=== PATIENT | female | born 1975 ===

== ENCOUNTER 2018-11-09 07:59 | Emergency (ER) | payer OTHER, SELFPAY ==
[2018-11-09] MEDS ORDERED: Sodium Chloride 0.9% 1,000 ML IV ONE (08:25)
[2018-11-09] MEDS ORDERED: Iohexol 240 (50 ml) PO STA (08:25)
--- NOTE | 2018-11-09 08:25 | C.PDOC ---
History Of Present Illness 43 year old female presents to ED with complaint of generalized abdominal pain for the past 5 days. Patient has a past surgical history of appendectomy. Patient denies history of hypertension. Patient also complains of associated maria m sea and vomiting. Patient denies fever, chills, and headache. GEN ABD PAIN X 5 DAYS. +NV. SUBJ FEVER. PSH APPY. DENIES HO HTN EXAM MOD DIST NONTOXIC HEENT MMM ABD +LUQ/LLQ/EPIG TEND SOFT ND GOOD TURGOR REMAINDER NEG Time Seen by Provider: 11/09/18 08:17 Chief Complaint (Nursing): Abdominal Pain History Per: Patient History/Exam Limitations: no limitations Onset/Duration Of Symptoms: Days (5) Current Symptoms Are (Timing): Still Present Location Of Pain/Discomfort: Diffuse Quality Of Discomfort: "Pain" Associated Symptoms: Nausea, Vomiting. denies: Fever, Chills, Diarrhea Past Medical History Reviewed: Historical Data, Nursing Documentation, Vital Signs Vital Signs: Last Vital Signs Temp 98.1 F 11/09/18 08:04 Pulse 81 11/09/18 08:04 Resp 20 11/09/18 08:04 BP 192/122 H 11/09/18 08:04 Pulse Ox 98 11/09/18 08:04 - Medical History PMH: Denies: HTN, Chronic Kidney Disease Surgical History: Appendectomy - [facility] Procedures BYPASS ILEUM TO CECUM, OPEN APPROACH (07/06/15) INSPECTION OF LOWER INTESTINAL TRACT, PERC ENDO APPROACH (07/06/15) RESECTION OF APPENDIX, OPEN APPROACH (07/06/15) Family History: States: Unknown Family Hx - Social History Hx Tobacco Use: Yes Hx Alcohol Use: Yes Hx Substance Use: Yes (cocaine, alcohol, tobacco) - Immunization History Hx Tetanus Toxoid Vaccination: No Hx Influenza Vaccination: No Hx Pneumococcal Vaccination: No Review Of Systems Constitutional: Negative for: Fever, Chills, Weakness Cardiovascular: Negative for: Chest Pain, Palpitations Respiratory: Negative for: Cough, Shortness of Breath Gastrointestinal: Positive for: Nausea, Vomiting, Abdominal Pain. Negative for: Diarrhea Genitourinary: Negative for: Dysuria, Hematuria Neurological: Negative for: Weakness, Numbness, Headache, Dizziness Physical Exam - Physical Exam Appears: Non-toxic, Other (moderately distressed) Skin: Normal Color, Warm, Dry, Other (good turgor) Head: Atraumatic, Normacephalic Oral Mucosa: Moist Neck: Normal ROM, Supple Chest: Symmetrical, No Deformity Cardiovascular: Rhythm Regular, No Murmur Respiratory: No Accessory Muscle Use, No Rales, No Rhonchi, No Wheezing, Other (NARD) Gastrointestinal/Abdominal: Soft, Tenderness (left upper quadrant, left lower quadrant, epigastric area), No Distention Extremity: Capillary Refill (<2 seconds) Extremity: Bilateral: Atraumatic, Normal Color And Temperature Pulses: Left Radial: Normal, Right Radial: Normal Neurological/Psych: Oriented x3, Normal Speech, Normal Cognition ED Course And Treatment - Laboratory Results Result Diagrams: 11/09/18 08:34 11/09/18 08:34 ECG: Interpreted By Me ECG Rhythm: Sinus Rhythm ECG Interpretation: Normal Rate From EC O2 Sat by Pulse Oximetry: 98 (RA) Pulse Ox Interpretation: Normal - CT Scan/US CT Abdomen/Pelvis Other Rad Studies (CT/US): Interpreted By Me, Read By Radiologist CT/US Interpretation: Accession No. : [id number]. Patient Name / ID : JIM Man / [id number]. Exam Date : 11/09/2018 10:44:31 ( Approved ). Study Comment : Sex / Age : F / 43Y. Creator : Baylee Aaron. Dictator : Nuzhat Morris MD. Road Manager : Crab Fisher : Bijal Morris MD. Approver2 : Report Date : 11/09/2018 10:57:28. My Comment : . This report is currently processing and HAS NOT BEEN OFFICIALLY SIGNED BY THE PHYSICIAN - ESTIMATED TIME OF APPROVAL IS 11/09/2018 11:31. PROCEDURE: CT Abdomen and Pelvis with oral and IV contrast. HISTORY: abd pain PSH APPY RO OBSTRUCT/COLITIS. COMPARISON: CT abdomen and pelvis with IV contrast performed 07/06/15. TECHNIQUE: Contigu ous axial images of the abdomen and pelvis. Oral and IV contrast was administered. Coronal and Sagittal reformats generated and reviewed. Contrast dose: 100 Visipaque 320 IV. Radiation dose: Total exam DLP = 328.14 mGy-cm. This CT exam was performed using one or more of the following dose reduction techniques: Automated exposure control, adjustment of the mA and/or kV according to patient size, and/or use of iterative reconstruction technique. FINDINGS: LOWER THORAX: No visible consolidation, pleural effusion, or pneumothorax. LIVER: Hepatomegaly. Hypoattenuation of the liver compatible with hepatic steatosis. GALLBLADDER AND BILE DUCTS: Unremarkable. PANCREAS: Unremarkable. SPLEEN: Unremarkable. ADRENALS: Unremarkable. KIDNEYS AND URETERS: The kidneys enhance symmetrically. No hydronephrosis or obstructing renal calculus. BLADDER: The urinary bladder appears unremarkable. REPRODUCTIVE: Uterus is absent consistent with hysterectomy. APPENDIX: Postsurgical changes consistent with appendectomy. BOWEL: The stomach is nondistended. The bowel loops appear within normal limits of caliber without evidence of intestinal obstruction. PERITONEUM: No significant free fluid. No definite free air. LYMPH NODES: No bulky lymphadenopathy identified. VASCULATURE: No aortic aneurysm. No atherosclerotic calcification or mural plaque present. BONES: Degenerative changes of the spine. OTHER FINDINGS: None. IMPRESSION: Hepatomegaly. Hypoattenuation of the liver compatible with hepatic steatosis. Appendectomy. Progress Note: CT Abdomen/Pelvis and EKG ordered for patient. Labs ordered with UA for patient. Patient given Morphine IVP, IV fluids, and Zofran IVP. Progress - Data Reviewed Data Reviewed: Lab, Diagnostic imaging, EKG, Old records Disposition Counseled Patient/Family Regarding: Diagnosis, Need For Followup - Disposition Referrals: [facility] [Outside] [facility] [Outside] Disposition: HOME/ ROUTINE Disposition Time: 12:07 Condition: IMPROVED Prescriptions: Acetaminophen with Codeine [Tylenol with Codeine No. 3 300 mg-30 mg] 1 tab PO Q6 PRN #12 tab PRN Reason: Pain, Moderate (4-7) Hydrochlorothiazide [Microzide] 12.5 mg PO DAILY #14 cap Instructions: Acute Abdomen (Belly Pain), Adult (DC), High Blood Pressure (DC) Forms: Bl[employer] for iPhone and Android Connect (Italian), Work Excuse Print Language: URUGUAYAN - Clinical Impression Clinical Impression: Abdominal pain, Hypertension - Scribe Statement The provider has reviewed the documentation as recorded by the Scribe (Lauren Ramon) All medical record entries made by the Scribe were at my direction and personally dictated by me. I have reviewed the chart and agree that the record accurately reflects my personal performance of the history, physical exam, medical decision making, and the department course for this patient. I have also personally directed, reviewed, and agree with the discharge instructions and disposition.
[2018-11-09] MEDS ORDERED: Sodium Chloride 0.9% 1,000 ML ONE (08:38)
[2018-11-09] MEDS ORDERED: Iohexol 240 (50 ml) ONE (08:38)
[2018-11-09] MEDS ORDERED: Morphine 4 MG/ML VIAL ONE ×2 (08:38→11:41)
[2018-11-09 08:46] LABS: BASO # 0.1 K/uL (0.0-0.2); BASO % 0.8 % (0.0-2.0); EOS # 0.1 K/uL (0.0-0.7); EOS % 1.3 % (0.0-4.0); HEMOGLOBIN 13.1 g/dL (11.0-16.0); LYMPH # 2.5 K/uL (1.0-4.3); LYMPH % 37.3 % (20.0-40.0); MEAN CORPUSCULAR HEMOGLOBIN 33.2 pg (27.0-31.0); MEAN CORPUSCULAR HGB CONC 33.8 g/dL (33.0-37.0); MEAN PLATELET VOLUME 8.5 fL (7.2-11.7); MONO # 0.6 K/uL (0.0-0.8); NEUT # 3.4 K/uL (1.8-7.0); NEUT % 51.6 % (50.0-75.0); NRBC % 0.1 % (0.0-2.0); RBC 3.94 Mil/uL (3.80-5.20); RED CELL DISTRIBUTION WIDTH 12.1 % (11.5-14.5); WHITE BLOOD COUNT 6.6 K/uL (4.8-10.8)
[2018-11-09 08:50] LABS: MEAN CELL VOLUME 98.2 fL (81.0-99.0)
[2018-11-09 08:55] LABS: ALB/GLOB RATIO 1.5 (1.0-2.1)
[2018-11-09 08:56] LABS: ALT/SGPT 31 U/L (9-52); AST/SGOT 41 U/L (14-36); BLOOD UREA NITROGEN 7 mg/dL (7-17); CALCIUM 8.1 mg/dl (8.6-10.4); GFR NON-AFRICAN AMERICAN > 60; LIPASE 88 U/L (23-300)
[2018-11-09 09:15] LABS: SQUAMOUS EPITHIAL 4 /hpf (0-5); URINE BILIRUBIN NEGATIVE (NEGATIVE); URINE BLOOD NEGATIVE (NEGATIVE); URINE CLARITY Hazy (Clear); URINE COLOR Yellow (YELLOW); URINE GLUCOSE (UA) 1+ mg/dL (Normal); URINE LEUKOCYTE ESTERASE NEG Leu/uL (Negative); URINE PROTEIN NEGATIVE (NEGATIVE); URINE UROBILINOGEN NORMAL mg/dL (0.2-1.0)
[2018-11-09] MEDS ORDERED: Labetalol 25mg/5ml Syringe IVP STA (09:23)
[2018-11-09] MEDS ORDERED: Iodixanol 320 MG/ML 100 ML BOTTLE IV ONE (09:44)
--- NOTE | 2018-11-09 11:29 | CT ---
PROCEDURE: CT Abdomen and Pelvis with oral and IV contrast. HISTORY: abd pain PSH APPY RO OBSTRUCT/COLITIS COMPARISON: CT abdomen and pelvis with IV contrast performed 07/06/15 TECHNIQUE: Contiguous axial images of the abdomen and pelvis. Oral and IV contrast was administered. Coronal and Sagittal reformats generated and reviewed. Contrast dose: 100 Visipaque 320 IV Radiation dose: Total exam DLP = 328.14 mGy-cm. This CT exam was performed using one or more of the following dose reduction techniques: Automated exposure control, adjustment of the mA and/or kV according to patient size, and/or use of iterative reconstruction technique. FINDINGS: LOWER THORAX: No visible consolidation, pleural effusion, or pneumothorax. LIVER: Hepatomegaly. Hypoattenuation of the liver compatible with hepatic steatosis. GALLBLADDER AND BILE DUCTS: Unremarkable. PANCREAS: Unremarkable. SPLEEN: Unremarkable. ADRENALS: Unremarkable. KIDNEYS AND URETERS: The kidneys enhance symmetrically. No hydronephrosis or obstructing renal calculus. BLADDER: The urinary bladder appears unremarkable. REPRODUCTIVE: Uterus is absent consistent with hysterectomy. APPENDIX: Postsurgical changes consistent with appendectomy. BOWEL: The stomach is nondistended. The bowel loops appear within normal limits of caliber without evidence of intestinal obstruction. PERITONEUM: No significant free fluid. No definite free air. LYMPH NODES: No bulky lymphadenopathy identified. VASCULATURE: No aortic aneurysm. No atherosclerotic calcification or mural plaque present. BONES: Degenerative changes of the spine. OTHER FINDINGS: None. IMPRESSION: Hepatomegaly. Hypoattenuation of the liver compatible with hepatic steatosis. Appendectomy.
[2018-11-09] MEDS ORDERED: Oxycodone/Acetaminophen 5/325 mg Tab PO STA (12:03)
[2018-11-09] MEDS ORDERED: Oxycodone/Acetaminophen 5/325 mg Tab ONE (12:05)
[2018-11-09 12:25] VITALS: BP 148/86; PULSE 99; RESP 20; TEMP 98.4; O2SAT 99
== END 2018-11-09 12:27 | disposition home or self-care (01) ==
LOC: EDBD 07:59 → C.ER 07:59
DX: I10 Essential (primary) hypertension (principal); R10.84 Generalized abdominal pain
CPT/HCPCS: 74177; 80053; 81001; 81025; 82948; 83690; 85025; 96374; 96375; 99285; J2270; J2405; J7030; Q9966; Q9967